=== PATIENT | male | born 1990 | race Caucasian/White ===

== ENCOUNTER 2018-01-10 12:59 | Emergency (ER) | payer SELFPAY ==
[2018-01-10] MEDS ORDERED: FAMOTIDINE 20MG TAB 20 MG TAB ONE (14:22)
[2018-01-10] MEDS ORDERED: HYDROXYZINE HCL 25 MG TABLET ONE (14:22)
== END 2018-01-10 15:04 | disposition home or self-care (01) ==
LOC: EDH 12:59
DX: K21.9 Gastro-esophageal reflux disease without esophagitis (principal); R05 Cough; F41.9 Anxiety disorder, unspecified
CPT/HCPCS: 71046